=== PATIENT | male | born 1995 | race Caucasian/White ===

== ENCOUNTER 2016-08-23 12:43 | Emergency (ER) | payer BC ==
[2016-08-23 13:27] VITALS: BP 128/73
--- NOTE | 2016-08-23 13:43 | UC ---
Knee Pain HPI - HPI Summary HPI Summary: Snowboarding two days ago and fell and twisted L knee. There was no obvious effusion or swelling. He has been walking since the fall. He is a euceda. No prior injury to that knee. He did not fall onto the knee he twisted [place] and then rolled to try to stop sliding. - History of Current Complaint Chief Complaint: UCLowerExtremity Stated Complaint: LEFT KNEE INJURY Time Seen by Provider: 08/23/16 13:20 Hx Obtained From: Patient Onset/Duration: Sudden Onset Severity Initially: Severe Severity Currently: Moderate Character: Sharp, Aching Aggravating Factor(s): Movement, Weight Bearing Alleviating Factor(s): Rest, Position Associated Signs And Symptoms: Positive: Negative. Negative: Swelling, Redness , Bruising, Fever Able to Bear Weight: Yes - Risk Factors Septic Arthritis Risk Factor: Negative Gout Risk Factor: Negative - Allergies/Home Medications Allergies/Adverse Reactions: Allergies Allergy/AdvReac Type Severity Reaction Status Date / Time Bee Venom Allergy Severe Edema Verified 08/23/16 13:22 PMH/Surg Hx/FS Hx/Imm Hx Previously Healthy: Yes Endocrine History Of: Denies: Thyroid Disease Cardiovascular History Of: Denies: Cardiac Disorders, Hypertension Respiratory History Of: Denies: COPD, Asthma GI/ History Of: Denies: Ulcer - Surgical History Surgical History: Yes Surgery Procedure, Year, and Place: L hand. wisdom teeth/other extractions - Family History Known Family History: Positive: None - no related orthopedic history in the family. - Social History Occupation: Employed Full-time Alcohol Use: Occasionally Substance Use Type: Marijuana Substance Use Comment - Amount & Last Used: last used Suday Smoking Status (MU): Heavy Every Day Tobacco Smoker Type: Cigarettes, Smokeless Tobacco Amount Used/How Often: 5 per day, 1 can q3days Length of Time of Smoking/Using Tobacco: 4 years Have You Smoked in the Last Year: Yes - Immunization History Most Recent Influenza Vaccination: not this season Most Recent Tetanus Shot: 2009 Review of Systems All Other Systems Reviewed And Are Negative: Yes Physical Exam Triage Information Reviewed: Yes Appearance: Well-Appearing, Pain Distress - He has some obvious pain with changes in position of the knee. Vital Signs: Initial Vital Signs Temp 99.7 F 08/23/16 13:22 Pulse 91 03/06/17 13:22 Resp 18 08/23/16 13:22 BP 128/73 08/23/16 13:22 Pulse Ox 98 08/23/16 13:22 Vital Signs Reviewed: Yes Eye Exam: Normal Eyes: Positive: Conjunctiva Clear. Negative: Conjunctiva Inflamed ENT Exam: Normal ENT: Positive: Normal ENT inspection, Hearing grossly normal, Pharynx normal, TMs normal. Negative: Pharyngeal erythema, Nasal drainage, TM bulging, TM dull , TM red Neck exam: Normal Neck: Positive: Supple, Nontender, No Lymphadenopathy Respiratory Exam: Normal Respiratory: Positive: Chest non-tender, Lungs clear, Normal breath sounds, No respiratory distress, No accessory muscle use. Negative: Respiratory distress Cardiovascular Exam: Normal Cardiovascular: Positive: RRR, No Murmur, Pulses Normal, Brisk Capillary Refill Abdominal Exam: Normal Abdomen Description: Positive: Nontender, No Organomegaly, Soft Musculoskeletal Exam: Normal Musculoskeletal: Positive: No Edema, Other: - Left knee no effusion compared to right. no redness. No laxity with valgus or varus stress. neg anterior drawer and lochmans. there is medial joint line tenderness and posterior tenderness. Neurological Exam: Normal Neurological: Positive: Alert, Muscle Tone Normal. Negative: Fatigued, Lethargic, Unresponsive Psychological Exam: Normal Skin Exam: Normal Skin: Negative: rashes Knee Pain Course/Dx - Course Course Of Treatment: knee pain after fall. with medial joint line tenderness and posterior tenderness, this is quite possibily a meniscal tear. there is no laxity of the knee and the joint is stable. It was a twisting mechanism and not consistent with fracture. refer to ortho, patient agrees to f/u. He will return for any worsening. He has been told that he may need further imaging and/or MRI should he not improve rapidly. ICE, NSAIDS, splint. - Differential Dx/Diagnosis Differential Diagnosis/HQI/PQRI: Abrasion, Bursitis, Contusion, Fracture (Closed ), Fracture (Open), Internal Derangement Of Knee, Sprain, Strain Provider Diagnoses: L knee pain. L knee strain. suspected internal derangement. Discharge - Discharge Plan Condition: Good Disposition: HOME Patient Education Materials: Knee Sprain (ED) Referrals: No Primary Care Phys,NOPCP [Primary Care Provider] - Albert Chaidez MD [Medical Doctor] -
== END 2016-08-23 13:45 | disposition home or self-care (01) ==
LOC: UCCORT 12:43
DX: M25.562 Pain in left knee (principal); S86.912A Strain of unspecified muscle(s) and tendon(s) at lower leg level, left leg, initial encounter; X50.1XXA Overexertion from prolonged static or awkward postures, initial encounter; Y93.23 Activity, snow (alpine) (downhill) skiing, snowboarding, sledding, tobogganing and snow tubing; Y92.9 Unspecified place or not applicable; F12.90 Cannabis use, unspecified, uncomplicated; F17.210 Nicotine dependence, cigarettes, uncomplicated
CPT/HCPCS: 99211; G0463

== ENCOUNTER 2017-05-19 16:01 | Emergency (ER) | payer BC ==
[2017-05-19 16:19] VITALS: BP 148/82
--- NOTE | 2017-05-19 16:51 | UC ---
Skin Complaint HPI - HPI Summary HPI Summary: SINCE HAS HAD SMALL DIFFUSE PATCHES OF ITCHY SCALING RASH ON TORSO. NO FEVER. NO TICK BITES. - History of Current Complaint Chief Complaint: UCSkin Time Seen by Provider: 05/19/17 16:29 Stated Complaint: RASH Hx Obtained From: Patient Onset/Duration: Gradual Onset, Lasting Weeks Skin Exposure Onset/Duration: Weeks Ago Timing: Constant Onset Severity: Mild Current Severity: Mild Location: Generalized Character: Pruritus, Redness, Raised Aggravating Factor(s): Touch Alleviating Factor(s): Nothing Associated Signs & Symptoms: Positive: Rash. Negative: Fever, Drainage, Bruising, Tenderness, Red Streaks Related History: Possible Reaction to: Environmental Exposure - Allergy/Home Medications Allergies/Adverse Reactions: Allergies Allergy/AdvReac Type Severity Reaction Status Date / Time Bee Venom Allergy Severe Edema Verified 05/19/17 16:19 Review of Systems Constitutional: Negative Skin: Rash Eyes: Negative ENT: Negative Respiratory: Negative Cardiovascular: Negative Gastrointestinal: Negative Genitourinary: Negative Motor: Negative Neurovascular: Negative Musculoskeletal: Negative Neurological: Negative Psychological: Negative Is Patient Immunocompromised?: No All Other Systems Reviewed And Are Negative: Yes PMH/Surg Hx/FS Hx/Imm Hx Previously Healthy: Yes - Surgical History Surgical History: Yes Surgery Procedure, Year, and Place: L hand. wisdom teeth/other extractions - Family History Known Family History: Positive: None - no related orthopedic history in the family. Negative: Blood Disorder - Social History Occupation: Employed Full-time Lives: With Family Alcohol Use: Weekly Alcohol Amount: weekends Substance Use Type: Marijuana Substance Use Comment - Amount & Last Used: last used Suday Smoking Status (MU): Heavy Every Day Tobacco Smoker Type: Cigarettes, Smokeless Tobacco Amount Used/How Often: 5 per day, 1 can q3days Length of Time of Smoking/Using Tobacco: 4 years Have You Smoked in the Last Year: Yes - Immunization History Most Recent Influenza Vaccination: not this season Most Recent Tetanus Shot: 2009 Physical Exam Triage Information Reviewed: Yes Appearance: Well-Appearing, No Pain Distress, Well-Nourished Vital Signs: Initial Vital Signs Temp 99.0 F 05/19/17 16:15 Pulse 70 05/19/17 16:15 Resp 16 05/19/17 16:15 BP 148/82 05/19/17 16:15 Pulse Ox 99 05/19/17 16:15 Vital Signs Reviewed: Yes Eye Exam: Normal ENT Exam: Normal ENT: Positive: Normal ENT inspection, Hearing grossly normal, Pharynx normal, TMs normal Dental Exam: Normal Neck exam: Normal Neck: Positive: Supple, Nontender, No Lymphadenopathy Respiratory Exam: Normal Respiratory: Positive: Chest non-tender, Lungs clear, Normal breath sounds, No respiratory distress, No accessory muscle use Cardiovascular Exam: Normal Cardiovascular: Positive: RRR, No Murmur, Pulses Normal Abdominal Exam: Normal Abdomen Description: Positive: Nontender, No Organomegaly Musculoskeletal Exam: Normal Neurological Exam: Normal Psychological Exam: Normal Skin: Positive: rashes - DIFFUSE SMALL (0.5 CM X 0.5CM) SCALING LESIONS Course/Dx - Differential Diagnoses - Skin Complaint Differential Diagnoses: Contact Dermatitis, Drug Rash, Eczema, Scarlatina, Tick Born Illness - Diagnoses Provider Diagnoses: ATOPIC DERMATITIS Discharge - Discharge Plan Condition: Stable Disposition: HOME Prescriptions: Triamcinolone 0.1% OINT(NF) [Kenalog 0.1% OINT(NF)] 1 applic TOPICAL TID #1 tube Patient Education Materials: Eczema (ED), Dermatitis (ED) Referrals: Rose Trevino [Medical Doctor] - No Primary Care Phys,NOPCP [Primary Care Provider] -
== END 2017-05-19 17:00 | disposition home or self-care (01) ==
LOC: UCCORT 16:01
DX: L20.9 Atopic dermatitis, unspecified (principal); F12.90 Cannabis use, unspecified, uncomplicated; F17.210 Nicotine dependence, cigarettes, uncomplicated; F17.220 Nicotine dependence, chewing tobacco, uncomplicated
CPT/HCPCS: 99212; G0463

== ENCOUNTER 2018-06-02 18:05 | Emergency (ER) | payer BC ==
[2018-06-02 18:22] VITALS: BP 141/84
--- NOTE | 2018-06-02 18:55 | UC ---
Skin Complaint HPI - HPI Summary HPI Summary: Per NANO fontenot "rash started about 1 month ago, progressively worsening, very itchy" -brother had same rash and was treated w/ oral pills. - History of Current Complaint Chief Complaint: UCRash Time Seen by Provider: 06/02/18 18:15 Stated Complaint: SKIN CONCERN Pain Intensity: 0 - Allergy/Home Medications Allergies/Adverse Reactions: Allergies Allergy/AdvReac Type Severity Reaction Status Date / Time bee venom protein (honey bee) Allergy Severe Edema Verified 06/02/18 18:22 PMH/Surg Hx/FS Hx/Imm Hx Previously Healthy: Yes - Surgical History Surgical History: Yes Surgery Procedure, Year, and Place: L hand. wisdom teeth/other extractions x4. fx jaw - Family History Known Family History: Positive: None - no related orthopedic history in the family. Negative: Blood Disorder - Social History Alcohol Use: Daily Alcohol Amount: few beers 5 days a week Substance Use Type: Marijuana Substance Use Comment - Amount & Last Used: daily Smoking Status (MU): Heavy Every Day Tobacco Smoker Type: Cigarettes, Smokeless Tobacco Amount Used/How Often: 1 ppd Length of Time of Smoking/Using Tobacco: 4 years Have You Smoked in the Last Year: Yes - Immunization History Most Recent Influenza Vaccination: not this season Most Recent Tetanus Shot: 2009 Review of Systems All Other Systems Reviewed And Are Negative: Yes Constitutional: Positive: Negative Skin: Positive: Rash Eyes: Positive: Negative ENT: Positive: Negative Respiratory: Positive: Negative Cardiovascular: Positive: Negative Gastrointestinal: Positive: Negative Genitourinary: Positive: Negative Motor: Positive: Negative Neurovascular: Positive: Negative Musculoskeletal: Positive: Negative Neurological: Positive: Negative Psychological: Positive: Negative Physical Exam Triage Information Reviewed: Yes Appearance: Well-Appearing, No Pain Distress, Well-Nourished Vital Signs: Initial Vital Signs Temp 98.9 F 06/02/18 18:16 Pulse 81 06/02/18 18:16 Resp 17 06/02/18 18:16 BP 141/84 06/02/18 18:16 Pulse Ox 100 06/02/18 18:16 Vital Signs Reviewed: Yes Cardiovascular Exam: Normal Cardiovascular: Positive: RRR Abdominal Exam: Normal Neurological Exam: Normal Psychological Exam: Normal Skin: Positive: Rashes - b/l arms and legs/ groin w/ tracking erythematous small spots that appear Course/Dx - Course Course Of Treatment: topical permetherin 5% cream. rpt after 1 wk. gave isntrcutions. wash all clothes and bedding in hot water - Differential Diagnoses - Skin Complaint Differential Diagnoses: Scabies, Tinea - Diagnoses Provider Diagnosis: Scabies Discharge - Sign-Out/Discharge Documenting (check all that apply): Patient Departure All imaging exams completed and their final reports reviewed: No Studies - Discharge Plan Condition: Stable Disposition: HOME Prescriptions: Permethrin 5% CREAM* 1 applic TOPICAL SEE INSTRUCTIONS 1 Days #1 tube Patient Education Materials: Scabies (ED) Referrals: No Primary Care Phys,NOPCP [Primary Care Provider] - If Needed Additional Instructions: Follow up if your symptoms do not resolve. repeat the permetherin 5% treatment in 1 week - Billing Disposition and Condition Condition: STABLE Disposition: Home
== END 2018-06-02 19:09 | disposition home or self-care (01) ==
LOC: UCCORT 18:05
DX: B86 Scabies (principal); F17.210 Nicotine dependence, cigarettes, uncomplicated
CPT/HCPCS: 99212; G0463

== ENCOUNTER 2019-05-10 19:47 | Emergency (ER) | payer BC ==
[2019-05-10 20:31] VITALS: BP 153/90
[2019-05-10] MEDS ORDERED: Lidocaine 1% MPF ** 5 ML VIAL IM ONE (20:52)
[2019-05-10] MEDS ORDERED: cefTRIAXone VIAL(*) 250 MG VIAL IM ONE (20:52)
[2019-05-10] MEDS ORDERED: Azithromycin TAB* 250 MG PO ONE (20:52)
--- NOTE | 2019-05-10 21:56 | UC ---
UC General HPI - HPI Summary HPI Summary: Patient presents to urgent care requesting treatment for chlamydia. Patient states his partner 3 weeks was diagnosed with chlamydia today. Patient states he does not consistently use condoms. Patient denies any lesions penile discharge or odor to urine. Patient states yesterday he knows a little burning when he urinated but no blood. No back pain. No abdominal pain. Patient denies previous history of STI's. Patient is on no medications and has no allergies to medications. - History of Current Complaint Chief Complaint: UCGU Stated Complaint: PERSONAL Time Seen by Provider: 05/10/19 20:39 Hx Obtained From: Patient Onset Severity: - She denies Current Severity: Mild - Current dog wasn't Pain Intensity: 0 - Allergy/Home Medications Allergies/Adverse Reactions: Allergies Allergy/AdvReac Type Severity Reaction Status Date / Time bee venom protein (honey bee) Allergy Severe Edema Verified 05/10/19 20:24 Home Medications: Home Medications NK [No Home Medications Reported] 05/10/19 [History Confirmed 05/10/19] PMH/Surg Hx/FS Hx/Imm Hx Previously Healthy: Yes - Surgical History Surgical History: Yes Surgery Procedure, Year, and Place: L hand. wisdom teeth/other extractions x4. fx jaw - Family History Known Family History: Positive: Non-Contributory Negative: Blood Disorder - Social History Occupation: Employed Full-time Lives: With Family Alcohol Use: Daily Alcohol Amount: few beers 5 days a week Substance Use Type: Marijuana Substance Use Comment - Amount & Last Used: daily Smoking Status (MU): Heavy Every Day Tobacco Smoker Type: Cigarettes, Smokeless Tobacco Amount Used/How Often: 1 ppd Length of Time of Smoking/Using Tobacco: 4 years Have You Smoked in the Last Year: Yes - Immunization History Most Recent Influenza Vaccination: not this season Most Recent Tetanus Shot: 2009 Review of Systems All Other Systems Reviewed And Are Negative: Yes Constitutional: Positive: Negative Skin: Positive: Negative - Guarding all Genitourinary: Positive: Dysuria. Negative: Hematuria - This, Frequency, Urgency Motor: Positive: Negative Neurovascular: Positive: Negative Musculoskeletal: Positive: Negative Physical Exam - Summary Physical Exam Summary: Vital Signs Reviewed: Yes A+Ox3, no distress Eyes: Conjunctiva Clear ENT: Hearing grossly normal neck: supple Respiratory: Positive: No respiratory distress, No accessory muscle use Cardiovascular: skin color reflect adequate perfusion Musculoskeletal Exam: DELAROSA x 4 without difficulty Neurological: Positive: Alert, ambulatory without difficulty Psychological: Positive: Normal Response To examiner Skin: Positive: no rash, no ecchymosis Triage Information Reviewed: Yes Vital Signs: Initial Vital Signs Temp 99.2 F 05/10/19 20:25 Pulse 71 05/10/19 20:25 Resp 16 05/10/19 20:25 BP 153/90 05/10/19 20:25 Pulse Ox 99 05/10/19 20:25 Course/Dx - Course Course Of Treatment: Patient presents to urgent care requesting treatment for chlamydia as his current partner was tested positive today. Patient initially asked for treatment of gonorrhea but after contacting his partner found out she was only positive for chlamydia. Patient states yellow dysuria starting yesterday. Patient with any other complaints per the patient within the next or lesions. Patient declined treatment for other STIs including HIV, herpes, hepatitis, and syphilis. Patient advised to use a condom for minimum of 10 days preferably 14 days. Advised to receive a phone call from the Department of Health Maria's test was positive. If he needed any further treatment would receive a call from the urgent care. Patient advised to contact any recent progress. Understanding the plan. Return precautions discussed. Pt's BP elevated - likely related to visit -r ecommend f/u with pcp , physician referral given - Diagnoses Provider Diagnosis: Exposure to chlamydia Discharge ED - Sign-Out/Discharge Documenting (check all that apply): Patient Departure All imaging exams completed and their final reports reviewed: No Studies - Discharge Plan Condition: Stable Disposition: HOME Patient Education Materials: Sexually Transmitted Diseases (ED), Condom Use (ED ) Referrals[place] [facility] [place]] No Primary Care Phys,NOPCP [Primary Care Provider] - Additional Instructions: -You were treated today for Chlaymdia because this is what your partner was diagnosed with - your urine is also being tested for gonorrhea. If you require treatment for this you will receive a call from a care produce service team member As discussed - you should use a condom for a minimum of 10 days and you should tell all of your recent partners about your diagnosis. You will likely be receive a call from the health department if your test is positive You elected not to be tested for other sexually transmitted diseases (HIV, Hepatitis, Herpes, Syphillis) You may follow-up with your doctor, the [facility] or the physician referral center of you would like treatment - Billing Disposition and Condition Condition: STABLE Disposition: Home
[2019-05-14 12:26] LABS: Chlamydia trachomatis NAA Positive (Negative); Neisseria gonorrhoeae (GC) NAA Negative (Negative)
== END 2019-05-10 21:09 | disposition home or self-care (01) ==
LOC: UCCORT 19:47
DX: Z20.2 Contact with and (suspected) exposure to infections with a predominantly sexual mode of transmission (principal); F17.210 Nicotine dependence, cigarettes, uncomplicated; R30.0 Dysuria; Z91.030 Bee allergy status
CPT/HCPCS: 81003; 87086; 87491; 87591; 99212; A9270-GY; G0463